=== PATIENT | male | born 1960 | race Caucasian/White ===

== ENCOUNTER 2018-05-28 10:10 | Observation (INO) | payer OTHER ==
[2018-05-28] MEDS: SOD CHLORIDE 0.9% 1,000 ML IV ×3 (10:34→13:36)
[2018-05-28] MEDS: LORAZEPAM 2 MG INJ IV (10:43)
[2018-05-28] MEDS: LORAZEPAM 2 MG INJ IM (10:45)
[2018-05-28 10:46] LABS: ADD MAN DIFF? NO
[2018-05-28] MEDS: ONDANSETRON 4 MG INJ IV (10:49)
[2018-05-28 10:53] LABS: ADD UMIC YES; UR ASCORBIC ACID NEGATIVE (NEGATIVE); UR BILIRUBIN (Dip) NEGATIVE (NEGATIVE); UR BLOOD (Dip) 1+ mg/dL (NEGATIVE); UR CLARITY CLEAR (CLEAR); UR COLOR STRAW (YELLOW); UR GLUCOSE (Dip) 3+ mg/dL (NEGATIVE); UR KETONES (Dip) NEGATIVE (NEGATIVE); UR LEUKOCYTE ESTERASE (Dip) NEGATIVE Leu/ul (NEGATIVE); UR NITRITE (Dip) NEGATIVE (NEGATIVE); UR RBC 3 /HPF (0-5); UR SPECIFIC GRAVITY (Dip) 1.021 (1.003-1.030); UR TOTAL PROTEIN (Dip) 3+ mg/dl (NEGATIVE); UR UROBILINOGEN (Dip) NEGATIVE (NEGATIVE); UR WBC 2 /HPF (0-5)
[2018-05-28 10:55] LABS: WHITE BLOOD COUNT 10.3 10^3/ul (4.8-10.8)
[2018-05-28 10:55] LABS: BASOPHILS % 0.4 % (0.0-2.0); EOSINOPHILS # 0.1 10^3/ul (0.0-0.5); EOSINOPHILS % 1.1 % (0.0-7.0); HEMATOCRIT 45.6 % (42.0-52.0); HEMOGLOBIN 15.3 g/dl (14.0-18.0); LYMPHOCYTES # 4.7 10^3/ul (0.8-2.9); LYMPHOCYTES % 45.6 % (15.0-51.0); MEAN CORPUSCULAR HEMOGLOBIN 31.2 pg (29.0-33.0); MEAN CORPUSCULAR HGB CONC 33.6 g/dl (32.0-37.0); MEAN CORPUSCULAR VOLUME 92.9 fl (82.0-101.0); MEAN PLATELET VOLUME 9.2 fl (7.4-10.4); MONOCYTE # 0.8 10^3/ul (0.3-0.9); MONOCYTES % 8.1 % (0.0-11.0); NEUTROPHIL # 4.6 10^3/ul (1.6-7.5); NEUTROPHILS % 44.4 % (39.0-77.0); PLATELET COUNT 230 10^3/UL (140-415); RED BLOOD COUNT 4.91 10^6/ul (4.70-6.10); RED CELL DISTRIBUTION WIDTH 12.5 % (11.5-14.5)
[2018-05-28] MEDS: LEVETIRACETAM 1000 MG (PMX) 100 ML IVPB (11:03)
[2018-05-28 11:09] LABS: ETHANOL < 10.0 mg/dl (0-0); SALICYLATE < 1.0 mg/dl (5.0-30.0)
[2018-05-28 11:09] LABS: ACETAMINOPHEN < 10.0 ug/ml (10.0-30.0)
[2018-05-28 11:26] LABS: AMPHETAMINE/METHAMPHETAMINE Negative (NEGATIVE); BARBITURATES Negative (NEGATIVE); BENZODIAZEPINES Negative (NEGATIVE); CANNABINOIDS Negative (NEGATIVE); COCAINE Negative (NEGATIVE); OPIATES Negative (NEGATIVE)
[2018-05-28 12:06] LABS: ALANINE AMINOTRANSFERASE 23 IU/L (13-69); ALBUMIN 4.9 g/dl (3.3-4.9); ALBUMIN/GLOBULIN RATIO 1.25; ALKALINE PHOSPHATASE 218 IU/L (42-121); ANION GAP 27 (5-13); ASPARTATE AMINO TRANSFERASE 32 IU/L (15-46); BILIRUBIN,INDIRECT 0.1 mg/dl (0-1.1); BILIRUBIN,TOTAL 0.1 mg/dl (0.2-1.3); BLOOD UREA NITROGEN 12 mg/dl (7-20); CALCIUM 9.8 mg/dl (8.4-10.2); CARBON DIOXIDE 14 mmol/L (21-31); CHLORIDE 106 mmol/L (97-110); CREATININE 0.59 mg/dl (0.61-1.24); Estimated GFR > 60 mL/min (>60); GLUCOSE 283 mg/dl (70-220); LIPASE 847 U/L (23-300); POTASSIUM 3.4 mmol/L (3.5-5.1); SODIUM 147 mmol/L (135-144); TOTAL PROTEIN 8.8 g/dl (6.1-8.1)
[2018-05-28 12:17] LABS: TROPONIN-I < 0.012 ng/ml (0.000-0.120)
[2018-05-28] MEDS ORDERED: morphine 2 MG INJ IV (14:00)
[2018-05-28] MEDS ORDERED: ONDANSETRON 4 MG INJ IV ×2 (14:00)
[2018-05-28] MEDS ORDERED: NITROGLYCERIN (SL) 0.4 MG TAB SL (14:00)
[2018-05-28] MEDS ORDERED: ACETAMINOPHEN 325 MG TAB PO (14:00)
[2018-05-28] MEDS ORDERED: NACL 0.9% 3 ML SYG IV (14:00)
[2018-05-28] MEDS: HYDROCODONE/APAP (5/325) TAB PO ×2 (14:24→21:10)
[2018-05-28] MEDS: LEVETIRACETAM 1500 MG (PMX) 100 ML IVPB (14:24)
[2018-05-28 15:30] LABS: HEMOGLOBIN A1C 10.8 % (0-5.9)
[2018-05-28] MEDS ORDERED: DEXTROSE 50% 50 ML SYRINGE IV ×2 (15:30)
[2018-05-28] MEDS ORDERED: GLUCOSE GEL 15 GRAM TUBE PO ×2 (15:30)
[2018-05-28] MEDS ORDERED: GLUCAGON 1 MG INJ IM (15:30)
[2018-05-28] MEDS ORDERED: GLUCOSE GEL 15 GRAM TUBE BUCCAL (15:30)
[2018-05-28 15:44] LABS: CREATINE KINASE 51 IU/L (23-200)
[2018-05-28 15:45] LABS: HDL CHOLESTEROL 43 mg/dl (28-71); LDL CHOLESTEROL,CALCULATED 119 mg/dl; TRIGLYCERIDES 67 mg/dl (0-149)
[2018-05-28 15:45] LABS: CHOLESTEROL 175 mg/dl (100-200)
[2018-05-28 15:57] LABS: CK INDEX 2.5
[2018-05-28 15:58] LABS: TROPONIN-I 0.127 ng/ml (0.000-0.120)
[2018-05-28] MEDS: ACETAMINOPHEN 325 MG TAB PO (18:37)
[2018-05-28] MEDS: DEXTROSE 5%-0.45% NACL 1,000 ML IV ×2 (18:38→23:49)
[2018-05-28] MEDS: LORAZEPAM 4 MG/ML VIAL IV (18:53)
[2018-05-28] MEDS: INSULIN ASPART [NOVOLOG] 3 ML PEN SC ×2 (19:00→21:00)
[2018-05-28 19:40] LABS: CREATINE KINASE 60 IU/L (23-200)
[2018-05-28 19:54] LABS: CK INDEX 2.9; CK-MB 1.71 ng/ml (0.0-2.4); TROPONIN-I 0.092 ng/ml (0.000-0.120)
[2018-05-28] MEDS: POTASSIUM CHLORIDE 100 ML IVPB (20:30)
[2018-05-28] MEDS: INSULIN GLARGINE [LANTus] (100 UNITS/ML) SYG SC (22:12)
[2018-05-29] MEDS: POTASSIUM CHLORIDE 100 ML IVPB (00:02)
[2018-05-29] MEDS: INSULIN ASPART [NOVOLOG] 3 ML PEN SC ×6 (01:00→17:10)
[2018-05-29] MEDS ORDERED: ACCU-CHEK XX (02:00)
[2018-05-29 05:22] LABS: ADD MAN DIFF? NO
[2018-05-29 05:28] LABS: BASOPHILS % 0.5 % (0.0-2.0); EOSINOPHILS # 0.1 10^3/ul (0.0-0.5); EOSINOPHILS % 1.3 % (0.0-7.0); HEMOGLOBIN 13.8 g/dl (14.0-18.0); LYMPHOCYTES # 1.7 10^3/ul (0.8-2.9); LYMPHOCYTES % 27.5 % (15.0-51.0); MEAN CORPUSCULAR HEMOGLOBIN 31.6 pg (29.0-33.0); MEAN CORPUSCULAR HGB CONC 36.3 g/dl (32.0-37.0); MEAN PLATELET VOLUME 9.2 fl (7.4-10.4); MONOCYTE # 0.5 10^3/ul (0.3-0.9); MONOCYTES % 7.3 % (0.0-11.0); NEUTROPHILS % 63.2 % (39.0-77.0); PLATELET COUNT 180 10^3/UL (140-415); RED BLOOD COUNT 4.37 10^6/ul (4.70-6.10); RED CELL DISTRIBUTION WIDTH 12.6 % (11.5-14.5)
[2018-05-29 05:28] LABS: WHITE BLOOD COUNT 6.3 10^3/ul (4.8-10.8)
[2018-05-29] MEDS: PANTOPRAZOLE 40 MG INJ IV (05:39)
[2018-05-29 06:02] LABS: ALANINE AMINOTRANSFERASE 27 IU/L (13-69); ALBUMIN 3.6 g/dl (3.3-4.9); ALBUMIN/GLOBULIN RATIO 1.09; ALKALINE PHOSPHATASE 146 IU/L (42-121); ANION GAP 6 (5-13); ASPARTATE AMINO TRANSFERASE 20 IU/L (15-46); BILIRUBIN,INDIRECT 0.1 mg/dl (0-1.1); BILIRUBIN,TOTAL 0.1 mg/dl (0.2-1.3); BLOOD UREA NITROGEN 7 mg/dl (7-20); CALCIUM 8.9 mg/dl (8.4-10.2); CARBON DIOXIDE 27 mmol/L (21-31); CHLORIDE 108 mmol/L (97-110); CREATININE 0.52 mg/dl (0.61-1.24); Estimated GFR > 60 mL/min (>60); GLUCOSE 178 mg/dl (70-220); LIPASE 55 U/L (23-300); MAGNESIUM 1.8 mg/dl (1.7-2.5); SODIUM 141 mmol/L (135-144); TOTAL PROTEIN 6.9 g/dl (6.1-8.1)
[2018-05-29] MEDS: ENOXAPARIN 40 MG/0.4 ML SYG SC (08:48)
[2018-05-29] MEDS: LEVETIRACETAM 1500 MG (PMX) 100 ML IVPB (09:26)
[2018-05-29] MEDS: DEXTROSE 5%-0.45% NACL 1,000 ML IV (12:31)
[2018-05-29] MEDS: Insulin NOVOLOG SS MILD Algorithm (SS with meals and bedtime) SC (21:00)
[2018-05-29] MEDS ORDERED: INSULIN ASPART [NOVOLOG] 3 ML PEN SC (21:00)
[2018-05-29] MEDS: LEVETIRACETAM 500 MG TAB PO (21:32)
[2018-05-29] MEDS: INSULIN GLARGINE [LANTus] (100 UNITS/ML) SYG SC (22:18)
[2018-05-30] MEDS: ACCUCHECK AT 2AM (Patients on SS coverage) XX (02:00)
[2018-05-30] MEDS: ACETAMINOPHEN 325 MG TAB PO (03:18)
[2018-05-30] MEDS: PANTOPRAZOLE 40 MG INJ IV (05:32)
[2018-05-30 05:53] LABS: ADD MAN DIFF? NO
[2018-05-30 05:56] LABS: BASOPHILS % 0.5 % (0.0-2.0); EOSINOPHILS # 0.1 10^3/ul (0.0-0.5); EOSINOPHILS % 1.9 % (0.0-7.0); HEMATOCRIT 39.4 % (42.0-52.0); LYMPHOCYTES # 1.6 10^3/ul (0.8-2.9); LYMPHOCYTES % 27.1 % (15.0-51.0); MEAN CORPUSCULAR HEMOGLOBIN 31.4 pg (29.0-33.0); MEAN CORPUSCULAR HGB CONC 35.5 g/dl (32.0-37.0); MEAN CORPUSCULAR VOLUME 88.3 fl (82.0-101.0); MEAN PLATELET VOLUME 9.2 fl (7.4-10.4); MONOCYTE # 0.5 10^3/ul (0.3-0.9); MONOCYTES % 9.2 % (0.0-11.0); NEUTROPHIL # 3.5 10^3/ul (1.6-7.5); NEUTROPHILS % 61.1 % (39.0-77.0); PLATELET COUNT 193 10^3/UL (140-415); RED BLOOD COUNT 4.46 10^6/ul (4.70-6.10); RED CELL DISTRIBUTION WIDTH 12.3 % (11.5-14.5)
[2018-05-30 05:56] LABS: WHITE BLOOD COUNT 5.8 10^3/ul (4.8-10.8)
[2018-05-30 06:25] LABS: ALBUMIN 3.7 g/dl (3.3-4.9); ANION GAP 9 (5-13); BLOOD UREA NITROGEN 11 mg/dl (7-20); CARBON DIOXIDE 28 mmol/L (21-31); CHLORIDE 104 mmol/L (97-110); CREATININE 0.52 mg/dl (0.61-1.24); GLUCOSE 186 mg/dl (70-220); MAGNESIUM 1.9 mg/dl (1.7-2.5); PHOSPHORUS 4.2 mg/dl (2.5-4.9); POTASSIUM 3.9 mmol/L (3.5-5.1); SODIUM 141 mmol/L (135-144)
[2018-05-30] MEDS: Insulin NOVOLOG SS MILD Algorithm (SS with meals and bedtime) SC ×3 (06:27→17:06)
[2018-05-30] MEDS: INSULIN ASPART [NOVOLOG] 3 ML PEN SC ×3 (08:06→17:26)
[2018-05-30] MEDS: ASPIRIN 81 MG TAB PO (08:32)
[2018-05-30] MEDS: LEVETIRACETAM 500 MG TAB PO (08:32)
[2018-05-30] MEDS: ENOXAPARIN 40 MG/0.4 ML SYG SC (08:35)
== END 2018-05-30 17:57 | disposition home or self-care (01) ==
LOC: E/R 10:10 → 6WM 13:37
DX: G40.909 Epilepsy, unspecified, not intractable, without status epilepticus (principal); K85.90 Acute pancreatitis without necrosis or infection, unspecified; I10 Essential (primary) hypertension; E11.9 Type 2 diabetes mellitus without complications; E87.6 Hypokalemia; Z89.411 Acquired absence of right great toe
CPT/HCPCS: 36415; 70450; 71045; 80053; 80061; 80069; 80307; 81001; 82550; 82553; 82962; 83036; 83690; 83735; 84443; 84484; 85025; 87081; 93005; 93306; 96374; 96375; 97161; 97167; 99285-25; G0378

== ENCOUNTER 2018-07-25 07:32 | Observation (INO) | payer MEDICARE, OTHER ==
[2018-07-25] MEDS ORDERED: LORAZEPAM 2 MG INJ (07:41)
[2018-07-25 08:00] LABS: WHITE BLOOD COUNT 14.2 10^3/ul (4.8-10.8)
[2018-07-25 08:00] LABS: ABNORMAL IP MESSAGE 1; HEMATOCRIT 42.9 % (42.0-52.0); HEMOGLOBIN 13.9 g/dl (14.0-18.0); MEAN CORPUSCULAR HEMOGLOBIN 31.4 pg (29.0-33.0); MEAN CORPUSCULAR HGB CONC 32.4 g/dl (32.0-37.0); MEAN CORPUSCULAR VOLUME 97.1 fl (82.0-101.0); MEAN PLATELET VOLUME 9.4 fl (7.4-10.4); PLATELET COUNT 209 10^3/UL (140-415); POSITIVE DIFF @See below; RED BLOOD COUNT 4.42 10^6/ul (4.70-6.10); RED CELL DISTRIBUTION WIDTH 12.2 % (11.5-14.5)
[2018-07-25 08:03] LABS: ADD MAN DIFF? YES
[2018-07-25] MEDS: LORAZEPAM 2 MG INJ IM (08:17)
[2018-07-25 08:18] LABS: ALANINE AMINOTRANSFERASE 24 IU/L (13-69); ALBUMIN 4.8 g/dl (3.3-4.9); ALBUMIN/GLOBULIN RATIO 1.26; ALKALINE PHOSPHATASE 185 IU/L (42-121); ANION GAP 26 (5-13); ASPARTATE AMINO TRANSFERASE 36 IU/L (15-46); BILIRUBIN,INDIRECT 0.1 mg/dl (0-1.1); BILIRUBIN,TOTAL 0.1 mg/dl (0.2-1.3); BLOOD UREA NITROGEN 19 mg/dl (7-20); CALCIUM 9.6 mg/dl (8.4-10.2); CARBON DIOXIDE 13 mmol/L (21-31); CHLORIDE 106 mmol/L (97-110); CREATININE 0.78 mg/dl (0.61-1.24); Estimated GFR > 60 mL/min (>60); GLUCOSE 307 mg/dl (70-220); POTASSIUM 3.6 mmol/L (3.5-5.1); SODIUM 145 mmol/L (135-144); TOTAL PROTEIN 8.6 g/dl (6.1-8.1)
[2018-07-25] MEDS: SOD CHLORIDE 0.9% 1,000 ML IV ×2 (08:18→10:28)
[2018-07-25 08:29] LABS: TROPONIN-I < 0.012 ng/ml (0.000-0.120)
[2018-07-25 09:35] LABS: LYMPHOCYTES #M 6.3 10^3/ul (0.8-2.9); LYMPHOCYTES % (M) 45 % (15-51); MONOCYTE #M 1.7 10^3/ul (0.3-0.9); MONOCYTES % (M) 12 % (0-11); PLATELET ESTIMATE NORMAL; POIKILOCYTOSIS 1+ (0-0); REACTIVE LYMPHOCYTES #M 1.4 10^3/ul (0.0-0.0); REACTIVE LYMPHOCYTES% (M) 10 % (0-0); SEGMENTED NEUTROPHILS (M) % 33 % (39-77); SMUDGE%M 8 % (0-0)
[2018-07-25] MEDS ORDERED: ONDANSETRON 4 MG INJ IV ×2 (10:00→10:30)
[2018-07-25] MEDS ORDERED: ACETAMINOPHEN 325 MG TAB PO (10:00)
[2018-07-25] MEDS: ASPIRIN 81 MG TAB PO (10:28)
[2018-07-25] MEDS ORDERED: GLUCOSE GEL 15 GRAM TUBE PO ×2 (10:30)
[2018-07-25] MEDS ORDERED: GLUCOSE GEL 15 GRAM TUBE BUCCAL (10:30)
[2018-07-25] MEDS ORDERED: LORAZEPAM 2 MG INJ IV ×2 (10:30)
[2018-07-25] MEDS ORDERED: morphine 2 MG INJ IV (10:30)
[2018-07-25] MEDS ORDERED: DEXTROSE 50% 50 ML SYRINGE IV ×2 (10:30)
[2018-07-25] MEDS ORDERED: GLUCAGON 1 MG INJ IM (10:30)
[2018-07-25] MEDS ORDERED: NACL 0.9% 3 ML SYG IV (10:30)
[2018-07-25 11:16] LABS: CHOLESTEROL 149 mg/dl (100-200); CREATINE KINASE 134 IU/L (23-200)
[2018-07-25 11:16] LABS: CHOL/HDL RATIO 2.6 RATIO; HDL CHOLESTEROL 57 mg/dl (30-78); LDL CHOLESTEROL,CALCULATED 83 mg/dl; TRIGLYCERIDES 47 mg/dl (0-149)
[2018-07-25] MEDS: INSULIN ASPART [NOVOLOG] 3 ML PEN SC ×5 (13:47→21:00)
[2018-07-25 14:48] LABS: TROPONIN-I < 0.012 ng/ml (0.000-0.120)
[2018-07-25 18:24] LABS: MAGNESIUM 2.2 mg/dl (1.7-2.5)
[2018-07-25 18:24] LABS: PHOSPHORUS 3.4 mg/dl (2.5-4.9)
[2018-07-25 19:13] LABS: ADD UMIC YES; UR ASCORBIC ACID NEGATIVE (NEGATIVE); UR BACTERIA FEW /HPF (NONE SEEN); UR BILIRUBIN (Dip) NEGATIVE (NEGATIVE); UR BLOOD (Dip) 1+ mg/dL (NEGATIVE); UR CLARITY CLEAR (CLEAR); UR COLOR STRAW (YELLOW); UR GLUCOSE (Dip) 3+ mg/dL (NEGATIVE); UR KETONES (Dip) NEGATIVE (NEGATIVE); UR LEUKOCYTE ESTERASE (Dip) NEGATIVE Leu/ul (NEGATIVE); UR MUCUS FEW /HPF (NONE SEEN); UR NITRITE (Dip) NEGATIVE (NEGATIVE); UR RBC 19 /HPF (0-5); UR SPECIFIC GRAVITY (Dip) 1.011 (1.003-1.030); UR TOTAL PROTEIN (Dip) NEGATIVE (NEGATIVE); UR UROBILINOGEN (Dip) NEGATIVE (NEGATIVE); UR WBC 4 /HPF (0-5)
[2018-07-25 19:34] LABS: AMPHETAMINE/METHAMPHETAMINE Negative (NEGATIVE); BARBITURATES Negative (NEGATIVE); BENZODIAZEPINES Negative (NEGATIVE); CANNABINOIDS Negative (NEGATIVE); COCAINE Negative (NEGATIVE); OPIATES Negative (NEGATIVE)
[2018-07-25 20:58] LABS: TROPONIN-I < 0.012 ng/ml (0.000-0.120)
[2018-07-25] MEDS: LEVETIRACETAM 500 MG TAB PO (21:18)
[2018-07-25] MEDS: ATORVASTATIN 80 MG TAB PO (21:18)
[2018-07-25] MEDS: FAMOTIDINE 20 MG TAB PO (21:18)
[2018-07-25] MEDS: INSULIN GLARGINE [LANTus] (100 UNITS/ML) SYG SC (23:43)
[2018-07-26] MEDS: ACCU-CHEK XX (02:22)
[2018-07-26 06:26] LABS: ADD MAN DIFF? NO
[2018-07-26 06:30] LABS: BASOPHILS % 0.4 % (0.0-2.0); EOSINOPHILS # 0.1 10^3/ul (0.0-0.5); EOSINOPHILS % 1.3 % (0.0-7.0); HEMATOCRIT 38.9 % (42.0-52.0); HEMOGLOBIN 13.2 g/dl (14.0-18.0); LYMPHOCYTES # 1.5 10^3/ul (0.8-2.9); LYMPHOCYTES % 32.4 % (15.0-51.0); MEAN CORPUSCULAR HEMOGLOBIN 30.8 pg (29.0-33.0); MEAN CORPUSCULAR HGB CONC 33.9 g/dl (32.0-37.0); MEAN CORPUSCULAR VOLUME 90.7 fl (82.0-101.0); MONOCYTE # 0.5 10^3/ul (0.3-0.9); NEUTROPHIL # 2.5 10^3/ul (1.6-7.5); NEUTROPHILS % 54.7 % (39.0-77.0); PLATELET COUNT 174 10^3/UL (140-415); RED BLOOD COUNT 4.29 10^6/ul (4.70-6.10); RED CELL DISTRIBUTION WIDTH 12.2 % (11.5-14.5)
[2018-07-26 06:30] LABS: WHITE BLOOD COUNT 4.6 10^3/ul (4.8-10.8)
[2018-07-26 06:51] LABS: HEMOGLOBIN A1C 10.6 % (0-5.9)
[2018-07-26 07:39] LABS: CREATINE KINASE 153 IU/L (23-200)
[2018-07-26] MEDS: INSULIN ASPART [NOVOLOG] 3 ML PEN SC ×7 (07:40→20:49)
[2018-07-26 07:52] LABS: CK INDEX 1.8; TROPONIN-I < 0.012 ng/ml (0.000-0.120)
[2018-07-26 07:57] LABS: CK-MB 2.69 ng/ml (0.0-2.4)
[2018-07-26] MEDS: LEVETIRACETAM 500 MG TAB PO ×2 (08:01→20:48)
[2018-07-26] MEDS: ASPIRIN 81 MG TAB PO (08:01)
[2018-07-26] MEDS: FAMOTIDINE 20 MG TAB PO ×2 (08:02→20:49)
[2018-07-26 08:14] LABS: ALANINE AMINOTRANSFERASE 38 IU/L (13-69); ALBUMIN 3.5 g/dl (3.3-4.9); ALBUMIN/GLOBULIN RATIO 1.16; ALKALINE PHOSPHATASE 142 IU/L (42-121); ANION GAP 7 (5-13); ASPARTATE AMINO TRANSFERASE 26 IU/L (15-46); BILIRUBIN,INDIRECT 0.1 mg/dl (0-1.1); BILIRUBIN,TOTAL 0.1 mg/dl (0.2-1.3); BLOOD UREA NITROGEN 16 mg/dl (7-20); CALCIUM 9.1 mg/dl (8.4-10.2); CARBON DIOXIDE 25 mmol/L (21-31); CHLORIDE 109 mmol/L (97-110); CREATININE 0.66 mg/dl (0.61-1.24); Estimated GFR > 60 mL/min (>60); GLUCOSE 225 mg/dl (70-220); MAGNESIUM 2.1 mg/dl (1.7-2.5); POTASSIUM 4.4 mmol/L (3.5-5.1); SODIUM 141 mmol/L (135-144); TOTAL PROTEIN 6.5 g/dl (6.1-8.1)
[2018-07-26] MEDS: SOD CHLORIDE 0.9% 1,000 ML IV (09:48)
[2018-07-26] MEDS: REGADENOSON 0.4 MG/5 ML SYG (10:51)
[2018-07-26] MEDS: ATORVASTATIN 80 MG TAB PO (20:48)
[2018-07-26] MEDS: INSULIN GLARGINE [LANTus] (100 UNITS/ML) SYG SC (20:51)
[2018-07-27] MEDS: ACCU-CHEK XX (02:59)
[2018-07-27 07:01] LABS: ADD MAN DIFF? NO
[2018-07-27 07:06] LABS: WHITE BLOOD COUNT 6.9 10^3/ul (4.8-10.8)
[2018-07-27 07:06] LABS: BASOPHILS % 0.4 % (0.0-2.0); EOSINOPHILS # 0.1 10^3/ul (0.0-0.5); EOSINOPHILS % 1.3 % (0.0-7.0); HEMATOCRIT 41.3 % (42.0-52.0); HEMOGLOBIN 14.4 g/dl (14.0-18.0); LYMPHOCYTES # 1.5 10^3/ul (0.8-2.9); LYMPHOCYTES % 21.3 % (15.0-51.0); MEAN CORPUSCULAR HEMOGLOBIN 31.4 pg (29.0-33.0); MEAN CORPUSCULAR HGB CONC 34.9 g/dl (32.0-37.0); MEAN CORPUSCULAR VOLUME 90.2 fl (82.0-101.0); MEAN PLATELET VOLUME 9.4 fl (7.4-10.4); MONOCYTE # 0.7 10^3/ul (0.3-0.9); MONOCYTES % 10.3 % (0.0-11.0); NEUTROPHIL # 4.6 10^3/ul (1.6-7.5); NEUTROPHILS % 66.4 % (39.0-77.0); PLATELET COUNT 181 10^3/UL (140-415); RED BLOOD COUNT 4.58 10^6/ul (4.70-6.10); RED CELL DISTRIBUTION WIDTH 12.2 % (11.5-14.5)
[2018-07-27] MEDS: FAMOTIDINE 20 MG TAB PO (08:06)
[2018-07-27] MEDS: ASPIRIN 81 MG TAB PO (08:06)
[2018-07-27] MEDS: LEVETIRACETAM 500 MG TAB PO (08:06)
[2018-07-27] MEDS: INSULIN ASPART [NOVOLOG] 3 ML PEN SC ×4 (08:20→12:54)
[2018-07-27 09:01] LABS: ANION GAP 10 (5-13); BLOOD UREA NITROGEN 15 mg/dl (7-20); CALCIUM 9.4 mg/dl (8.4-10.2); CARBON DIOXIDE 25 mmol/L (21-31); CHLORIDE 106 mmol/L (97-110); CREATININE 0.72 mg/dl (0.61-1.24); Estimated GFR > 60 mL/min (>60); GLUCOSE 213 mg/dl (70-220); MAGNESIUM 1.9 mg/dl (1.7-2.5); PHOSPHORUS 4.1 mg/dl (2.5-4.9); POTASSIUM 4.3 mmol/L (3.5-5.1); SODIUM 141 mmol/L (135-144)
== END 2018-07-27 17:24 | disposition home or self-care (01) ==
LOC: E/R 07:32 → TEL 09:50
PROVIDERS: Internal Medicine
DX: R07.9 Chest pain, unspecified (principal); E11.9 Type 2 diabetes mellitus without complications; G40.909 Epilepsy, unspecified, not intractable, without status epilepticus; I10 Essential (primary) hypertension; E78.5 Hyperlipidemia, unspecified; Z79.4 Long term (current) use of insulin; Z23 Encounter for immunization
CPT/HCPCS: 36415; 70450; 70551; 71045; 78451; 80048; 80053; 80061; 80307; 81001; 82550; 82553; 82962; 83036; 83735; 84100; 84484; 85025; 90686; 93005; 93306; 95819; 96372; 99285-25; G0378

== ENCOUNTER 2018-07-31 12:42 | Observation (INO) | payer MEDICARE, OTHER ==
[2018-07-31 13:00] LABS: ADD MAN DIFF? NO
[2018-07-31 13:03] LABS: BASOPHILS % 0.3 % (0.0-2.0); EOSINOPHILS # 0.1 10^3/ul (0.0-0.5); EOSINOPHILS % 0.8 % (0.0-7.0); HEMATOCRIT 40.1 % (42.0-52.0); HEMOGLOBIN 14.1 g/dl (14.0-18.0); LYMPHOCYTES # 0.9 10^3/ul (0.8-2.9); LYMPHOCYTES % 14.1 % (15.0-51.0); MEAN CORPUSCULAR HEMOGLOBIN 31.2 pg (29.0-33.0); MEAN CORPUSCULAR HGB CONC 35.2 g/dl (32.0-37.0); MEAN CORPUSCULAR VOLUME 88.7 fl (82.0-101.0); MEAN PLATELET VOLUME 9.2 fl (7.4-10.4); MONOCYTE # 0.4 10^3/ul (0.3-0.9); NEUTROPHIL # 4.7 10^3/ul (1.6-7.5); NEUTROPHILS % 77.5 % (39.0-77.0); PLATELET COUNT 206 10^3/UL (140-415); RED BLOOD COUNT 4.52 10^6/ul (4.70-6.10); RED CELL DISTRIBUTION WIDTH 12.2 % (11.5-14.5)
[2018-07-31] MEDS: ASPIRIN 325 MG TAB PO (13:16)
[2018-07-31] MEDS: SOD CHLORIDE 0.9% 1,000 ML IV ×2 (13:16→18:14)
[2018-07-31] MEDS: LEVETIRACETAM 1000 MG (PMX) 100 ML IVPB (13:17)
[2018-07-31 13:22] LABS: ALANINE AMINOTRANSFERASE 63 IU/L (13-69); ALBUMIN 4.3 g/dl (3.3-4.9); ALBUMIN/GLOBULIN RATIO 1.19; ALKALINE PHOSPHATASE 164 IU/L (42-121); ANION GAP 11 (5-13); ASPARTATE AMINO TRANSFERASE 27 IU/L (15-46); BILIRUBIN,INDIRECT 0.1 mg/dl (0-1.1); BILIRUBIN,TOTAL 0.1 mg/dl (0.2-1.3); BLOOD UREA NITROGEN 15 mg/dl (7-20); CALCIUM 9.8 mg/dl (8.4-10.2); CARBON DIOXIDE 28 mmol/L (21-31); CHLORIDE 102 mmol/L (97-110); CREATININE 0.71 mg/dl (0.61-1.24); Estimated GFR > 60 mL/min (>60); GLUCOSE 355 mg/dl (70-220); INR 0.93; POTASSIUM 4.3 mmol/L (3.5-5.1); PROTIME 12.6 Sec (11.9-14.9); SODIUM 141 mmol/L (135-144); TOTAL PROTEIN 7.9 g/dl (6.1-8.1)
[2018-07-31 13:23] LABS: PARTIAL THROMBOPLASTIN TIME 25.4 Sec (23.0-35.0)
[2018-07-31 13:34] LABS: TROPONIN-I < 0.012 ng/ml (0.000-0.120)
[2018-07-31 13:38] LABS: MAGNESIUM 1.7 mg/dl (1.7-2.5)
[2018-07-31 13:48] LABS: LACTIC ACID 2.8 mmol/L (0.5-2.0)
[2018-07-31 14:09] LABS: B-TYPE NATRIURETIC PEPTIDE 33 PG/ML (0-125)
[2018-07-31] MEDS ORDERED: ONDANSETRON 4 MG INJ IV ×2 (15:00→17:30)
[2018-07-31] MEDS ORDERED: ACETAMINOPHEN 325 MG TAB PO ×2 (15:00→17:30)
[2018-07-31 15:20] LABS: ADD UMIC NO; UR ASCORBIC ACID NEGATIVE (NEGATIVE); UR BILIRUBIN (Dip) NEGATIVE (NEGATIVE); UR BLOOD (Dip) NEGATIVE (NEGATIVE); UR CLARITY CLEAR (CLEAR); UR COLOR STRAW (YELLOW); UR GLUCOSE (Dip) 3+ mg/dL (NEGATIVE); UR KETONES (Dip) NEGATIVE (NEGATIVE); UR LEUKOCYTE ESTERASE (Dip) NEGATIVE Leu/ul (NEGATIVE); UR NITRITE (Dip) NEGATIVE (NEGATIVE); UR TOTAL PROTEIN (Dip) NEGATIVE (NEGATIVE); UR UROBILINOGEN (Dip) NEGATIVE (NEGATIVE)
[2018-07-31] MEDS: CEFEPIME 2GM/50 ML (PMX) 50 ML IVPB (15:34)
[2018-07-31] MEDS: SODIUM CHLORIDE 0.9% 1L BAG IV* (15:38)
[2018-07-31] MEDS: VANCOMYCIN 1 GM (PMX) 250 ML IVPB (15:51)
[2018-07-31 16:09] LABS: LACTIC ACID 2.2 mmol/L (0.5-2.0)
[2018-07-31] MEDS ORDERED: HYDROCODONE/APAP (5/325) TAB PO (17:30)
[2018-07-31] MEDS ORDERED: ZOLPIDEM 5 MG TAB PO (17:30)
[2018-07-31] MEDS ORDERED: NITROGLYCERIN (SL) 0.4 MG TAB SL (17:30)
[2018-07-31] MEDS ORDERED: morphine 2 MG INJ IV (17:30)
[2018-07-31] MEDS ORDERED: NACL 0.9% 3 ML SYG IV (17:30)
[2018-07-31] MEDS ORDERED: DOCUSATE SODIUM 100 MG CAP PO (17:30)
[2018-07-31] MEDS ORDERED: GLUCAGON 1 MG INJ IM (18:00)
[2018-07-31] MEDS ORDERED: GLUCOSE GEL 15 GRAM TUBE PO ×2 (18:00)
[2018-07-31] MEDS ORDERED: DEXTROSE 50% 50 ML SYRINGE IV ×2 (18:00)
[2018-07-31] MEDS ORDERED: GLUCOSE GEL 15 GRAM TUBE BUCCAL (18:00)
[2018-07-31] MEDS: INSULIN ASPART [NOVOLOG] 3 ML PEN SC ×3 (18:12→21:00)
[2018-07-31] MEDS: INSULIN GLARGINE [LANTus] (100 UNITS/ML) SYG SC (20:00)
[2018-07-31] MEDS: LEVETIRACETAM 750 MG TAB PO (21:16)
[2018-07-31] MEDS: ATORVASTATIN 40 MG TAB PO (21:16)
[2018-08-01 01:42] LABS: TROPONIN-I < 0.012 ng/ml (0.000-0.120)
[2018-08-01] MEDS: ACCU-CHEK XX (02:00)
[2018-08-01] MEDS: SOD CHLORIDE 0.9% 1,000 ML IV (03:30)
[2018-08-01 06:22] LABS: ADD MAN DIFF? NO
[2018-08-01 06:30] LABS: WHITE BLOOD COUNT 5.2 10^3/ul (4.8-10.8)
[2018-08-01 06:30] LABS: BASOPHILS % 0.6 % (0.0-2.0); EOSINOPHILS # 0.1 10^3/ul (0.0-0.5); EOSINOPHILS % 1.7 % (0.0-7.0); HEMOGLOBIN 12.5 g/dl (14.0-18.0); LYMPHOCYTES # 1.4 10^3/ul (0.8-2.9); LYMPHOCYTES % 26.8 % (15.0-51.0); MEAN CORPUSCULAR HEMOGLOBIN 31.1 pg (29.0-33.0); MEAN CORPUSCULAR HGB CONC 34.7 g/dl (32.0-37.0); MEAN CORPUSCULAR VOLUME 89.6 fl (82.0-101.0); MEAN PLATELET VOLUME 9.7 fl (7.4-10.4); MONOCYTE # 0.5 10^3/ul (0.3-0.9); MONOCYTES % 9.2 % (0.0-11.0); NEUTROPHIL # 3.2 10^3/ul (1.6-7.5); NEUTROPHILS % 61.5 % (39.0-77.0); PLATELET COUNT 191 10^3/UL (140-415); RED BLOOD COUNT 4.02 10^6/ul (4.70-6.10); RED CELL DISTRIBUTION WIDTH 12.3 % (11.5-14.5)
[2018-08-01 06:47] LABS: LACTIC ACID 1.7 mmol/L (0.5-2.0)
[2018-08-01 06:54] LABS: HEMOGLOBIN A1C 10.6 % (0-5.9)
[2018-08-01 07:01] LABS: TROPONIN-I < 0.012 ng/ml (0.000-0.120)
[2018-08-01 07:46] LABS: ALANINE AMINOTRANSFERASE 46 IU/L (13-69); ALBUMIN 3.4 g/dl (3.3-4.9); ALBUMIN/GLOBULIN RATIO 1.09; ALKALINE PHOSPHATASE 133 IU/L (42-121); ANION GAP 6 (5-13); ASPARTATE AMINO TRANSFERASE 24 IU/L (15-46); BLOOD UREA NITROGEN 15 mg/dl (7-20); CARBON DIOXIDE 25 mmol/L (21-31); CHLORIDE 109 mmol/L (97-110); CREATININE 0.71 mg/dl (0.61-1.24); Estimated GFR > 60 mL/min (>60); GLUCOSE 281 mg/dl (70-220); MAGNESIUM 1.8 mg/dl (1.7-2.5); PHOSPHORUS 3.9 mg/dl (2.5-4.9); POTASSIUM 4.5 mmol/L (3.5-5.1); SODIUM 140 mmol/L (135-144); TOTAL PROTEIN 6.5 g/dl (6.1-8.1)
[2018-08-01] MEDS: INSULIN ASPART [NOVOLOG] 3 ML PEN SC ×4 (07:47→11:22)
[2018-08-01] MEDS: ENOXAPARIN 40 MG/0.4 ML SYG SC (08:46)
[2018-08-01] MEDS: LEVETIRACETAM 750 MG TAB PO (08:46)
[2018-08-02] MEDS ORDERED: ASPIRIN 81 MG TAB PO (09:00)
== END 2018-08-01 13:50 | disposition home or self-care (01) ==
LOC: E/R 12:42 → 6WM 14:59
DX: R07.89 Other chest pain (principal); G40.909 Epilepsy, unspecified, not intractable, without status epilepticus; E11.9 Type 2 diabetes mellitus without complications; Z79.4 Long term (current) use of insulin; E78.5 Hyperlipidemia, unspecified; E87.2 Acidosis
CPT/HCPCS: 71045; 80053; 81003; 82962; 83036; 83605; 83735; 83880; 84100; 84484; 85025; 85610; 85730; 87040; 87081; 87086; 87400; 93005; 96374; 99217; 99291-25

== ENCOUNTER 2019-01-29 02:04 | Emergency (ER) | payer MEDICARE, OTHER ==
[2019-01-29] MEDS: KETOROLAC 30 MG INJ IM ×2 (03:01→03:03)
[2019-01-29 03:02] LABS: ADD MAN DIFF? NO
[2019-01-29 03:05] LABS: WHITE BLOOD COUNT 4.3 10^3/ul (4.8-10.8)
[2019-01-29 03:05] LABS: BASOPHILS % 0.7 % (0.0-2.0); EOSINOPHILS # 0.1 10^3/ul (0.0-0.5); EOSINOPHILS % 1.6 % (0.0-7.0); HEMATOCRIT 36.4 % (42.0-52.0); HEMOGLOBIN 12.7 g/dl (14.0-18.0); LYMPHOCYTES # 0.8 10^3/ul (0.8-2.9); MEAN CORPUSCULAR HEMOGLOBIN 30.5 pg (29.0-33.0); MEAN CORPUSCULAR HGB CONC 34.9 g/dl (32.0-37.0); MEAN CORPUSCULAR VOLUME 87.5 fl (82.0-101.0); MEAN PLATELET VOLUME 9.3 fl (7.4-10.4); MONOCYTE # 0.5 10^3/ul (0.3-0.9); MONOCYTES % 11.4 % (0.0-11.0); NEUTROPHIL # 2.9 10^3/ul (1.6-7.5); NEUTROPHILS % 68.1 % (39.0-77.0); PLATELET COUNT 188 10^3/UL (140-415); RED BLOOD COUNT 4.16 10^6/ul (4.70-6.10); RED CELL DISTRIBUTION WIDTH 12.7 % (11.5-14.5)
[2019-01-29] MEDS: KETOROLAC 30 MG INJ IV (03:07)
[2019-01-29 03:23] LABS: ALANINE AMINOTRANSFERASE 31 IU/L (13-69); ALBUMIN 3.9 g/dl (3.3-4.9); ALKALINE PHOSPHATASE 173 IU/L (42-121); ANION GAP 7 (5-13); ASPARTATE AMINO TRANSFERASE 21 IU/L (15-46); BILIRUBIN,INDIRECT 0.3 mg/dl (0-1.1); BILIRUBIN,TOTAL 0.3 mg/dl (0.2-1.3); BLOOD UREA NITROGEN 16 mg/dl (7-20); CALCIUM 9.5 mg/dl (8.4-10.2); CARBON DIOXIDE 27 mmol/L (21-31); CHLORIDE 105 mmol/L (97-110); CREATININE 0.78 mg/dl (0.61-1.24); Estimated GFR > 60 mL/min (>60); GLUCOSE 269 mg/dl (70-220); LIPASE 87 U/L (23-300); POTASSIUM 3.7 mmol/L (3.5-5.1); SODIUM 139 mmol/L (135-144); TOTAL PROTEIN 6.9 g/dl (6.1-8.1)
[2019-01-29 03:26] LABS: ETHANOL < 10.0 mg/dl (0-0)
[2019-01-29 03:36] LABS: TROPONIN-I < 0.012 ng/ml (0.000-0.120)
== END 2019-01-29 04:47 | disposition home or self-care (01) ==
LOC: E/R 02:04
DX: I10 Essential (primary) hypertension (principal); E11.9 Type 2 diabetes mellitus without complications; Z79.4 Long term (current) use of insulin
CPT/HCPCS: 36415; 71045; 80053; 80307; 83690; 84484; 85025; 93005; 96374; 99285-25